=== PATIENT | male | born 1985 | race African-American/Black ===

== ENCOUNTER 2019-09-18 20:08 | Inpatient (IN) | payer SELFPAY ==
[~2019-09-18] VITALS: Ht 177.8 cm; Wt 72.0 kg
[2019-09-18 21:04] LABS: BASO% 1 % (0-3); EOS% 0 % (0-8); HEMATOCRIT 43.1 % (39.0-50.0); HEMOGLOBIN 15.2 g/dl (14.0-18.0); IMMATURE GRANULOCYTES 0.3 % (0.0-5.0); LYMPH% 21 % (15-41); MEAN CELL VOLUME 88.7 fL CALC (80.0-100.0); MEAN CORPUSCULAR HGB 31.3 pG CALC (26.0-32.0); MEAN CORPUSCULAR HGB CONC 35.3 g/dL CAL (32.0-36.0); MONO% 13 % (2-13); NEUT# 4.32 thou/uL (1.82-7.42); NEUT% 65 % (42-76); PLATELET COUNT 247 thou/uL (130-400); RED BLOOD COUNT 4.86 mill/uL (4.70-6.10); RED CELL DISTRI WIDTH 13.1 % (11.5-15.5)
[2019-09-18 21:09] LABS: URINE BILIRUBIN - DIPSTICK NEGATIVE (NEGATIVE); URINE BLOOD DIPSTICK TRACE-INTACT (NEGATIVE); URINE COLOR YELLOW; URINE GLUCOSE - DIPSTICK >=1000 mg/dL (NEGATIVE); URINE KETONE 40 mg/dL (NEGATIVE); URINE LEUK ESTERASE NEGATIVE (NEGATIVE); URINE NITRITE - DIPSTICK NEGATIVE (Negative); URINE PROTEIN - DIPSTICK NEGATIVE (NEG-TRACE); URINE UROBILINOGEN - DIPSTICK 0.2 E.U./dL (0.2)
[2019-09-18 21:11] LABS: BARBITURATES NEGATIVE (NEGATIVE); COCAINE NEGATIVE (NEGATIVE); METHADONE NEGATIVE (NEGATIVE); OXCYCODONE NEGATIVE (NEGATIVE); TETRAHYDROCANNABIONOL NEGATIVE (NEGATIVE); TRICYLIC ANTIDEPRESSANTS NEGATIVE (NEGATIVE)
[2019-09-18 21:25] LABS: ALBUMIN 5.4 g/dL (3.2-5.0); ALKALINE PHOSPHATASE 132 u/l (38-126); ANION GAP 32 (6-22 (CALC)); BUN 11 mg/dL (9-20); BUN/CREATININE RATIO 9 (12-20 (CALC)); CARBON DIOXIDE 16 mmol/l (22-30); CHLORIDE 88 mmol/l (95-108); CREATININE 1.3 mg/dL (0.7-1.3); GFR > 60 ML/MIN (>=60 (CALC)); GFR FOR AFR.AMER. > 60 ML/MIN (>=60 (CALC)); POTASSIUM 4.2 mmol/l (3.5-5.1); SGOT/AST 16 u/l (17-59); SODIUM 132 mmol/l (137-146); TOTAL PROTEIN 8.6 g/dL (6.3-8.2)
[2019-09-18 21:38] LABS: MYOGLOBIN 63 ng/mL (0 - 121)
[2019-09-19] VITALS (19 sets, daily range): BP systolic 98–127; BP diastolic 50–86
[2019-09-19 01:35] LABS: ANION GAP 18 (6-22 (CALC)); BUN 9 mg/dL (9-20); BUN/CREATININE RATIO 9 (12-20 (CALC)); CARBON DIOXIDE 22 mmol/l (22-30); CHLORIDE 102 mmol/l (95-108); CREATININE 0.9 mg/dL (0.7-1.3); GFR > 60 ML/MIN (>=60 (CALC)); GFR FOR AFR.AMER. > 60 ML/MIN (>=60 (CALC)); POTASSIUM 3.2 mmol/l (3.5-5.1); SODIUM 139 mmol/l (137-146)
[2019-09-19 01:36] LABS: MAGNESIUM 2.2 mg/dL (1.6-2.3)
[2019-09-19 05:31] LABS: ANION GAP 11 (6-22 (CALC)); BUN 9 mg/dL (9-20); BUN/CREATININE RATIO 12 (12-20 (CALC)); CARBON DIOXIDE 25 mmol/l (22-30); CHLORIDE 104 mmol/l (95-108); CREATININE 0.7 mg/dL (0.7-1.3); GFR > 60 ML/MIN (>=60 (CALC)); GFR FOR AFR.AMER. > 60 ML/MIN (>=60 (CALC)); POTASSIUM 3.2 mmol/l (3.5-5.1); SODIUM 137 mmol/l (137-146)
[2019-09-20] VITALS (8 sets, daily range): BP systolic 104–120; BP diastolic 67–81
[2019-09-20 05:27] LABS: ANION GAP 10 (6-22 (CALC)); BUN 8 mg/dL (9-20); BUN/CREATININE RATIO 11 (12-20 (CALC)); CARBON DIOXIDE 25 mmol/l (22-30); CHLORIDE 101 mmol/l (95-108); CREATININE 0.7 mg/dL (0.7-1.3); GFR > 60 ML/MIN (>=60 (CALC)); GFR FOR AFR.AMER. > 60 ML/MIN (>=60 (CALC)); POTASSIUM 3.2 mmol/l (3.5-5.1); SODIUM 133 mmol/l (137-146)
[2019-09-20] MEDS ORDERED: NOVOLIN 70/30 SC (08:42)
== END 2019-09-20 11:46 | disposition home or self-care (01) | DRG 639 ==
LOC: ED 20:08 → ED-I 21:00 → ED 22:11 → ICU 22:12
PROVIDERS: Emergency Medicine; Internal Medicine; ADMIT Internal Medicine; ATTEND Internal Medicine
PROC: 3E0234Z Introduction of Serum, Toxoid and Vaccine into Muscle, Percutaneous Approach (ICD-10-PCS; principal; 2019-09-19)
DX: E11.10 Type 2 diabetes mellitus with ketoacidosis without coma (principal); Z83.3 Family history of diabetes mellitus; Z23 Encounter for immunization; Z11.59 Encounter for screening for other viral diseases

== ENCOUNTER 2020-06-30 14:40 | Emergency (ER) | payer SELFPAY ==
[~2020-06-30] VITALS: Ht 177.8 cm; Wt 90.0 kg
[~2020-06-30 14:40] MED LIST: NOVOLIN 70/30 SC
[2020-06-30 15:35] LABS: HEMATOCRIT 42.6 % (39.0-50.0); HEMOGLOBIN 14.3 g/dl (14.0-18.0); IMMATURE GRANULOCYTES 0.2 % (0.0-5.0); MEAN CELL VOLUME 93.4 fL CALC (80.0-100.0); MEAN CORPUSCULAR HGB 31.4 pG CALC (26.0-32.0); MEAN CORPUSCULAR HGB CONC 33.6 g/dL CAL (32.0-36.0); NEUT# 3.57 thou/uL (1.82-7.42); RED BLOOD COUNT 4.56 mill/uL (4.70-6.10)
[2020-06-30 15:56] LABS: ALBUMIN 4.7 g/dL (3.2-5.0); BILIRUBIN, TOTAL 0.6 mg/dL (0.0-1.4); BUN 15 mg/dL (9-20); BUN/CREATININE RATIO 14 (12-20 (CALC)); CARBON DIOXIDE 26 mmol/l (22-30); CHLORIDE 101 mmol/l (95-108); GFR > 60 ML/MIN (>=60 (CALC)); GFR FOR AFR.AMER. > 60 ML/MIN (>=60 (CALC)); LIPASE 47 u/l (23-300); SGOT/AST 26 u/l (17-59); SODIUM 135 mmol/l (137-146); TOTAL PROTEIN 7.9 g/dL (6.3-8.2)
[2020-06-30 15:58] LABS: ALKALINE PHOSPHATASE 63 u/l (38-126); ANION GAP 12 (6-22 (CALC)); POTASSIUM 4.1 mmol/l (3.5-5.1)
[2020-06-30 17:00] VITALS: BP 121/74
== END 2020-06-30 17:00 | disposition home or self-care (01) | DRG 195 ==
LOC: ED 14:40
DX: J10.1 Influenza due to other identified influenza virus with other respiratory manifestations (principal); E11.9 Type 2 diabetes mellitus without complications; K21.9 Gastro-esophageal reflux disease without esophagitis; Z79.4 Long term (current) use of insulin; Z20.822 Contact with and (suspected) exposure to COVID-19